=== PATIENT | female | born 1960 | race Caucasian/White ===

== ENCOUNTER 2017-05-12 13:14 | Emergency (ER) | payer SELFPAY ==
[~2017-05-12] VITALS: Ht 167.6 cm; Wt 73.7 kg
[2017-05-12 13:20] VITALS: BP 151/77; PULSE 83; RESP 14; TEMP 98.9; O2SAT 98
--- NOTE | 2017-05-12 14:06 | PD ---
HPI Chief Complaint: Complaint Time Seen by Provider: 14:05 Travel History International Travel<30 days: No Contact w/Intl Traveler<30days: No Traveled to known affect area: No History of Present Illness HPI 57-year-old postmenopausal female presents the emergency department with ongoing issues of dysuria, urinary frequency, and urgency. Patient states she has been treated 3 times for UTI since last week of March. Patient states she's been treated with Macrobid, followed by [facility], and is currently on Macrobid and Pyridium. Patient is here visiting from [facility]. Patient states her symptoms continue. She has some intermittent low-grade fevers and chills, as well as mild low back pain. Patient denies vaginal symptoms. She has no known drug allergies. [facility] Social History Alcohol Use: Yes Tobacco Use: No Substance Use: No Allergies-Medications (Allergen,Severity, Reaction): Coded Allergies: No Known Allergies (Unverified , 05/12/17) Reported Meds & Prescriptions Reported Meds & Active Scripts Active Pyridium (Phenazopyridine HCl) 100 Mg Tab 100 Mg PO Q8H PRN Keflex (Cephalexin) 500 Mg Capsule 500 Mg PO Q8H Reported Macrobid (Nitrofurantoin Monoh/Nitrofur Macro) 100 Mg Cap 100 Mg PO BID Pyridium (Phenazopyridine HCl) 100 Mg Tab 100 Mg PO Q8H PRN Review of Systems Except as stated in HPI: all other systems reviewed are Neg General / Constitutional: No: Fever Eyes: No: Visual changes HENT: No: Headaches Cardiovascular: No: Chest Pain or Discomfort Respiratory: No: Shortness of Breath Gastrointestinal: No: Abdominal Pain Genitourinary: Positive: Urgency, Frequency, Dysuria Musculoskeletal: No: Pain Skin: No Rash Neurologic: No: Weakness Psychiatric: No: Depression Endocrine: No: Polydipsia Hematologic/Lymphatic: No: Easy Bruising Physical Exam Narrative GENERAL: Patient appears in no acute distress. SKIN: Warm and dry. Normal color. Normal turgor. HEAD: Atraumatic. Normocephalic. EYES: Pupils equal and round. No scleral icterus. No injection or drainage. ENT: No nasal bleeding or discharge. Mucous membranes pink and moist. Pharynx is clear. Airway is patent. NECK: Trachea midline. Supple nontender. CARDIOVASCULAR: Regular rate and rhythm. RESPIRATORY: No accessory muscle use. Clear to auscultation. Breath sounds equal bilaterally. GASTROINTESTINAL: Abdomen soft, mild suprapubic tenderness, nondistended. Hepatic and splenic margins not palpable. No CVA tenderness. MUSCULOSKELETAL: Extremities without clubbing, cyanosis, or edema. No obvious deformities. NEUROLOGICAL: Awake and alert. No obvious cranial nerve deficits. Motor grossly within normal limits. Five out of 5 muscle strength in the arms and legs. Normal speech. PSYCHIATRIC: Appropriate mood and affect; insight and judgment normal. Data Data Last Documented VS Vital Signs Date Time Temp Pulse Resp B/P (MAP) Pulse Ox O2 Delivery O2 Flow Rate FiO2 05/12/17 13:20 98.9 83 14 151/77 (101) 98 Room Air Orders Orders Urinalysis - C+S If Indicated (05/12/17 14:05) Ceftriaxone Inj (Rocephin Inj) (05/12/17 14:30) Lidocaine Pf 1% Inj (Xylocaine-Mpf 1% In (05/12/17 14:30) Urine Culture (05/12/17 14:10) Labs Laboratory Tests Test 05/12/17 14:10 Urine Collection Type CLEAN CATCH Urine Color YELLOW Urine Turbidity CLEAR Urine pH 8.0 Urine Specific Sidell 1.016 Urine Protein TRACE mg/dL Urine Glucose (UA) NEG mg/dL Urine Ketones NEG mg/dL Urine Occult Blood NEG Urine Nitrite POS Urine Bilirubin NEG Urine Leukocyte Esterase TRACE Urine WBC 3-5 /hpf Urine Amorphous Sediment MOD Microscopic Urinalysis Comment CULTURE INDICATED MDM Medical Decision Making Medical Screen Exam Complete: Yes Emergency Medical Condition: Yes Differential Diagnosis Recurrent urinary tract infection. Possible chronic cystitis. Need for other antibiotic. Narrative Course Urinalysis is sent and culture ordered. Urinalysis suggestive of possible urinary tract infection. Cultures pending. Patient given Rocephin thousand milligrams IM. Patient continued on Keflex 500 mg 3 times a day 10 days. Patient is continued on Pyridium 100 mg 3 times a day when necessary #12. Patient should follow with her primary care physician upon return to [place]. Patient may need follow-up with urologist if symptoms continue or do not improve. Patient is welcome to return to emergency Department with worsening symptoms if necessary. Diagnosis Primary Impression: Urinary tract infection, chronic Referrals: Urologist Patient Instructions: Dysuria (ED), General Instructions Additional Instructions: Urinalysis suggestive of possible urinary tract infection. Cultures pending. Patient given Rocephin thousand milligrams IM. Patient continued on Keflex 500 mg 3 times a day 10 days. Patient is continued on Pyridium 100 mg 3 times a day when necessary #12. Patient should follow with her primary care physician upon return to [place]. Patient may need follow-up with urologist if symptoms continue or do not improve. Patient is welcome to return to emergency Department with worsening symptoms if necessary. Med/Other Pt SpecificInfo: Prescription(s) given Scripts Phenazopyridine (Pyridium) 100 Mg Tab 100 MG PO Q8H Y for DYSURIA, #12 TAB 0 Refills Prov: Corinna Johnson MD 05/12/17 Cephalexin (Keflex) 500 Mg Capsule 500 MG PO Q8H for Infection, #30 CAP 0 Refills Prov: Corinna Johnson MD 05/12/17 Disposition: 01 DISCHARGE HOME Condition: Stable Sebastián Diop May 12, 2017 14:06
[2017-05-12] MEDS ORDERED: PHEN0.4T PO ×2 (14:14→14:59)
[2017-05-12] MEDS ORDERED: MACR100C2 PO (14:14)
[2017-05-12 14:21] LABS: BLOOD, URINE NEG (NEG); GLUCOSE,URINE NEG (NEG); KETONE, URINE NEG (NEG); NITRITE,URINE POS (NEG)
[2017-05-12 14:24] LABS: METHOD OF COLLECTION CLEAN CATCH; URINE COLOR YELLOW (YELLW/STRAW)
[2017-05-12 14:27] LABS: COMMENT (UR) CULTURE INDICATED; CULTURE IF INDICATED CULTURE INDICATED
[2017-05-12] MEDS ORDERED: LIDOCAINE HCL 1% PF 30 ML VIAL XX ONE (14:30)
[2017-05-12] MEDS ORDERED: CEPH-460 PO (14:59)
== END 2017-05-12 15:14 | disposition home or self-care (01) ==
LOC: PHEFT 13:14
DX: N39.0 Urinary tract infection, site not specified (principal); B96.89 Other specified bacterial agents as the cause of diseases classified elsewhere
CPT/HCPCS: 81001; 87086; 96372; 99284; J0696